=== PATIENT | female | born 1980 | race Caucasian/White ===

== ENCOUNTER 2020-12-06 15:16 | Emergency (ER) | payer OTHER, SELFPAY ==
--- NOTE | ~2020-12-06 | XR_ITS ---
XR shoulder LT min 2V DATE: 12/06/2020 18:16 INDICATION: Left posterior shoulder pain since Wednesday. TECHNIQUE: 4 views COMPARISON: None FINDINGS: No fracture or dislocation, periosteal reaction or bone destruction. No abnormal soft tiss ue calcification. There is degenerative spurring at the the bilateral C5-6 and left C6-7 uncovertebral joints. Degenerative disc disease at C5-6. IMPRESSION: Negative left shoulder Degenerative changes of the cervical spine Reviewed, dictated and finalized at location A. [employer]
[2020-12-06 15:58] VITALS: BP 119/64; PULSE 75; RESP 18; TEMP 36.8; O2SAT 100
[2020-12-06 17:37] VITALS: BP 113/70; PULSE 69; RESP 18; TEMP 36.8; O2SAT 98
--- NOTE | 2020-12-06 18:09 | ED.EXTPRO ---
HPI - Extremity Problem General Chief complaint: Back Pain/Injury Stated complaint: lt neck and shoulder pain Time Seen by Provider: 12/06/20 18:04 Source: patient Mode of arrival: ambulatory Limitations: no limitations History of Present Illness HPI Narrative: This is a 40 year old female that presents to the ER for left posterior shoulder pain x 1 week. Reports she was carrying cases of water up the stairs and when she got to the top she felt sharp pain in the back of her left shoulder. Reports the pain has continued since. Reports last night she picked up her daughter with worsening of pain. She has been taking Ibuprofen with little relief. Denies decreased ROM or numbness. Related Data Allergies Allergy/AdvReac Type Severity Reaction Status Date / Time No Known Allergies Allergy Verified 12/06/20 16:03 Review of Systems Review of Systems: Narrative: CONSTITUTIONAL: Denies fever SKIN: Denies rash MUSCULOSKELETAL: Reports back pain, joint pain, and myalgia. NEUROLOGIC: Denies numbness, or weakness. All systems reviewed & are unremarkable except as noted in HPI and below PMFSH Past Medical History Medical History (Updated 12/06/20 @ 20:01 by Maria E Mg PA-C) No active medical problems Social History Social History (Updated 12/06/20 @ 18:12 by Maria E Mg PA-C) Smoking status: Current every day smoker Exam Narrative: Exam Narrative: GENERAL: Well-appearing, well-nourished, and in no acute distress. HEAD: Normocephalic, atraumatic. EYES: EOMI. CHEST: Clear to auscultation. No respiratory distress. No wheezes rales or rhonchi HEART: Regular rate and rhythm. No murmur heard. Normal peripheral pulses. BACK: Left trapezius musculature tender to palpation EXTREMITIES: Normal range of motion. No edema or obvious deformity. Strength equal in bilateral upper extremities. Normal radial pulses. Normal sensation SKIN: Warm, dry, no rash. NEURO: No focal deficits. Alert and oriented x3. PSYCH: Normal mood and affect Course Vital Signs Vital signs: Vital Signs Temperature 98.2 F 12/06/20 15:58 Pulse Rate 75 12/06/20 15:58 Respiratory Rate 18 12/06/20 15:58 Blood Pressure 119/64 12/06/20 15:58 Pulse Oximetry 100 12/06/20 15:58 Temperature 98.2 F 12/06/20 17:37 Pulse Rate 69 12/06/20 17:37 Respiratory Rate 18 12/06/20 17:37 Blood Pressure 113/70 12/06/20 17:37 Pulse Oximetry 98 12/06/20 17:37 MDM - Extremity (Nontraumatic) MDM Narrative Medical decision making narrative: Patient presents the emergency department for left posterior shoulder pain x1 week after lifting heavy object. Patient is neurologically intact. Left shoulder x-rays without acute findings. Patient given Toradol, Tylenol and muscle relaxer with relief. She is stable and felt appropriate for further outpatient evaluation. She was given warnings to return to the ER Imaging Data Radiologist's impression: ITS Impressions Shoulder X-Ray 12/06/20 18:22 IMPRESSION: Negative left shoulder Degenerative changes of the cervical spine Critical Care Time Critical Care Time Critical Care Time: No Discharge Plan Discharge Clinical Impression: Acute thoracic myofascial strain Qualifiers: Encounter type: initial encounter Qualified Code(s): S29.019A - Strain of muscle and tendon of unspecified wall of thorax, initial encounter Patient Disposition: Home, Self-Care Condition: Stable Instructions: Muscle Strain (ED) Additional Instructions: Return to the ER if you experience fever, weakness, numbness, or any other symptoms that are concerning to you Rest, use ice/heat, take anti-inflammatories (Aleve, Ibuprofen, Naproxen, etc) or Tylenol as needed for pain as well as muscle relaxer (diazepam) as needed for pain. Muscle relaxers can make you drowsy, do not drive if you take this Follow up with primary care doctor Prescriptions: New diazepam 5 mg tablet 5 mg PO BID
[2020-12-06] MEDS: ACETAMINOPHEN 500 MG TABLET 1000 MG PO (18:35)
[2020-12-06] MEDS: KETOROLAC (*BKC) 60 MG/2 ML VIAL IM (18:36)
[2020-12-06] MEDS: diazePAM INJ (*CRX) 10 MG/2 ML SYRINGE 5 MG IM (18:37)
[2020-12-06 19:05] VITALS: TEMP 36.8
[2020-12-06 19:06] VITALS: TEMP 36.8
[2020-12-06 20:08] VITALS: BP 129/68; PULSE 76; RESP 16; O2SAT 96
== END 2020-12-06 20:10 | disposition home or self-care (01) ==
PROVIDERS: Emergency Provider Emergency Medicine
DX: S29.019A Strain of muscle and tendon of unspecified wall of thorax, initial encounter (principal); F17.200 Nicotine dependence, unspecified, uncomplicated; X50.0XXA Overexertion from strenuous movement or load, initial encounter
CPT/HCPCS: 73030; 96372; 99284; A9270; J1885; J3360

== ENCOUNTER 2020-12-30 09:25 | Outpatient (CLI) | payer OTHER, SELFPAY ==
--- NOTE | ~2020-12-30 | MR_ITS ---
EXAMINATION: MR cervical spine wo con DATE: 12/30/2020 10:23 INDICATION: Cervical radiculopathy. TECHNIQUE: Magnetic resonance imaging (MRI) of the cervical spine was performed without intravenous c ontrast. Sequences included sagittal T2-weighted FSE, sagittal STIR FSE, sagittal T1-weighted FSE, ax ial MERGE, and axial T2-weighted FSE. COMPARISON: None FINDINGS: There is kyphosis of cervical spine. Vertebral body heights are normal. There is mildly dec reased disc height at C3-C4, moderately decreased disc height at C4-C5 and C5-C6, and mildly decrease d disc height at C6-C7. The spinal cord signal intensity is normal. The following disc levels are spe cifically discussed: C2-C3: The disc does not extend beyond the endplate margin. There is no uncovertebral joint osteoarth ritis. There is mild bilateral facet joint osteoarthritis. There is no neural foraminal stenosis. The re is no central canal stenosis. C3-C4: The disc is bulging. There is moderate bilateral uncovertebral joint osteoarthritis. There is mild right facet joint osteoarthritis. There is moderate bilateral neural foraminal stenosis. There i s mild central canal stenosis with ventral indentation of spinal cord. C4-C5: The disc is bulging superimposed left subarticular zone extrusion. There is moderate bilateral uncovertebral joint osteoarthritis. There is no facet joint osteoarthritis. There is mild right and moderate left neural foraminal stenosis. There is moderate central canal stenosis with ventral and do rsal indentation of spinal cord. C5-C6: The disc is bulging with superimposed left subarticular extrusion. There is severe bilateral u ncovertebral joint osteoarthritis. There is mild bilateral facet joint osteoarthritis. There is sever e bilateral neural foraminal stenosis. There is moderate central canal stenosis with ventral and dors al indentation of spinal cord. C6-C7: The disc is bulging with superimposed left central extrusion. There is mild right and moderate left uncovertebral joint osteoarthritis. There is no facet joint osteoarthritis. There is mild right and moderate left neural foraminal stenosis. There is mild central canal stenosis. C7-T1: The disc does not extend beyond the endplate margin. There is no uncovertebral joint osteoarth ritis. There is mild bilateral facet joint osteoarthritis. There is no neural foraminal stenosis. The re is no central canal stenosis. IMPRESSION: 1. Severe cervical spondylosis. Reviewed, dictated and finalized at location A. [employer]
== END 2020-12-30 09:26 | disposition home or self-care (01) ==
LOC: ANHIMG 09:30
PROVIDERS: PCP Family Medicine; Visit Provider Family Medicine
DX: M54.12 Radiculopathy, cervical region (principal); M47.812 Spondylosis without myelopathy or radiculopathy, cervical region
CPT/HCPCS: 72141

== ENCOUNTER 2022-02-12 11:04 | Emergency (ER) | payer OTHER, SELFPAY ==
[2022-02-12 11:29] VITALS: BP 104/65; PULSE 86; RESP 18; TEMP 36.7; O2SAT 99
--- NOTE | 2022-02-12 11:58 | ED.URI ---
HPI - URI/Sore Throat General Chief Complaint: Upper Respiratory Infection Stated Complaint: sorethroat Time Seen by Provider: 02/12/22 11:58 Source: patient Mode of arrival: ambulatory Limitations: no limitations History of Present Illness HPI Narrative: 41-year-old female presents with complaint of sore throat, fatigue, headaches, body aches, chills, fever for 2 days. Today have vomiting and diarrhea. Continues to feel nauseated. Reports coworkers with similar symptoms. No known Covid contact. Denies chest pain or shortness of breath. Taking Tylenol for fever. Systems reviewed and negative except as noted above. Related Data Allergies Allergy/AdvReac Type Severity Reaction Status Date / Time No Known Allergies Allergy Verified 02/12/22 12:00 Review of Systems Review of Systems: CONSTITUTIONAL: Reports fever, chills, or sweats. EYES: Denies visual changes, redness, or discharge. ENT: Denies rhinorrhea, congestion. Reports sore throat. Denies otalgia. CARDIOVASCULAR: Denies chest pain, palpitations, or edema. RESPIRATORY: Denies cough or dyspnea. GASTROINTESTINAL: Denies abdominal pain. Reports nausea, vomiting, or diarrhea. GENITOURINARY: Denies dysuria or hematuria. SKIN: Denies rash or itching. MUSCULOSKELETAL: Denies back pain, joint pain, or myalgia. NEUROLOGIC: Denies headache, numbness, or weakness. PSYCHIATRIC: Denies anxiety or depression. All other systems reviewed are negative, except as documented in HPI. [facility] Past Medical History Medical History (Updated 02/12/22 @ 12:27 by Kathy Graves NP) BMI 28.0-28.9,adult BMI 30.0-30.9,adult Cervical spondylosis with radiculopathy MRI 12/30/2020 with severe spondylosis Chronic anxiety No active medical problems Radiculitis of left cervical region Family History Family History (Updated 12/12/20 @ 14:07 by Coral Almazan MA) Grandparent Brain cancer Grandparent Carcinoma of colon Social History Social History (Updated 03/10/21 @ 15:15 by Coral Almazan MA) Smoking packs per day: 0.5 Smoking cigarettes per day: 10.0 Years smoked: 24 Smoking pack-years: 12.00 Smoking status: Current every day smoker Tobacco type: cigarettes Alcohol intake: never Substance use: never Substance use type: does not use Comments At time of signature, agree with nursing past medical, surgical, social and family history. There is no relevant family history pertinent to the presenting complaint. Exam Narrative: GENERAL: This is a well-nourished, well-developed patient, in no apparent distress. HEAD: normocephalic, atraumatic. EYES: PERRL. Sclera clear/white. Vision is grossly intact. EARS: External ears normal, auditory canals clear and without drainage, TMs normal without perforation. Hearing grossly intact. NOSE: External nose normal with no obvious nasal discharge, nares without redness, no rhinorrhea. THROAT: Mucous membranes moist, mild erythema to posterior phonics with no swelling or exudates. No tonsillar swelling. NECK: Neck supple, non-tender without lymphadenopathy, masses or thyromegaly. CARDIOVASCULAR: Regular rate and rhythm without murmurs, gallops, or rubs. RESPIRATORY: Clear to auscultation. Breath sounds equal bilaterally. No wheezes, rales, or rhonchi. GASTROINTESTINAL: Abdomen soft, non-tender, nondistended. Bowel sounds are active. No hepato-splenomegaly, or palpable masses. No guarding. SKIN: warm, Dry, intact with no suspicious lesions or rash, good texture and turgor. NEURO: awake, alert, and oriented to person, place and time. There were no obvious focal neurologic abnormalities. EXTREMITIES: Normal range of motion to all extremities.. Course Course Level of Care: Express Care Visit Vital Signs Vital signs: Vital Signs Temperature 36.7 C 02/12/22 11:29 Pulse Rate 86 02/12/22 11:29 Respiratory Rate 18 02/12/22 11:29 Blood Pressure 104/65 02/12/22 11:29 Pulse Oximetry 99 02/12/22 11:29
== END 2022-02-12 12:30 | disposition home or self-care (01) ==
PROVIDERS: Emergency Provider Nurse Practitioner Family
DX: B34.9 Viral infection, unspecified (principal); F17.210 Nicotine dependence, cigarettes, uncomplicated; M47.22 Other spondylosis with radiculopathy, cervical region
CPT/HCPCS: 87804; 99213; G0463

== ENCOUNTER 2024-02-02 12:47 | Emergency (ER) | payer OTHER, SELFPAY ==
[2024-02-02 13:02] VITALS: BP 114/63; PULSE 83; RESP 18; TEMP 36.7; O2SAT 98
--- NOTE | 2024-02-02 13:12 | ED.URI ---
HPI - URI/Sore Throat General Chief Complaint: Upper Respiratory Infection Stated Complaint: Sore Throat,Cough,Fever Time Seen by Provider: 02/02/24 13:04 Source: patient and RN notes reviewed Mode of arrival: ambulatory Limitations: no limitations History of Present Illness HPI Narrative: Patient presents today complaining of a subjective fever, sore throat, cough, rhinorrhea, chills, postnasal drip, headache since 4:00 a.m. this morning. Denies shortness of breath or difficulty swallowing. Currently rates her pain 6/10 and has been taking Tylenol with some relief. Reports daughter was sick with similar symptoms last week, Related Data Home Medications Medication Instructions Recorded Confirmed No Home Medications 02/02/24 02/02/24 Allergies Allergy/AdvReac Type Severity Reaction Status Date / Time No Known Allergies Allergy Verified 02/02/24 12:50 Review of Systems Review of Systems: CONSTITUTIONAL: Denies body aches, or sweats.+ subjective fever, chills EYES: Denies visual changes, redness, or discharge. ENT: Denies otalgia.+ rhinorrhea, postnasal drip, sore throat CARDIOVASCULAR: Denies chest pain, palpitations, or edema. RESPIRATORY: Denies dyspnea.+ cough GASTROINTESTINAL: Denies abdominal pain, nausea, vomiting, or diarrhea. GENITOURINARY: Denies dysuria or hematuria. SKIN: Denies rash, itching, or wounds. MUSCULOSKELETAL: Denies back pain, joint pain, or myalgia. NEUROLOGIC: Denies numbness, tingling, or weakness.+ headache PSYCH: Denies depression or anxiety. [facility] Past Medical History Medical History BMI 28.0-28.9,adult BMI 30.0-30.9,adult Cervical spondylosis with radiculopathy MRI 12/30/2020 with severe spondylosis Chronic anxiety No active medical problems Radiculitis of left cervical region Family History Family History Grandparent Brain cancer Grandparent Carcinoma of colon Social History Social History Smoking packs per day: 0.5 Smoking cigarettes per day: 10.0 Years smoked: 24 Smoking pack-years: 12.00 Smoking status: Current every day smoker Tobacco type: cigarettes Alcohol intake: never Substance use: never Substance use type: does not use Comments At time of signature, I have reviewed and agree with nursing past medical, surgical, social and family history unless otherwise noted. Please see nursing chart for further information. There is no relevant family history pertinent to the presenting complaint Exam Narrative: GENERAL: Well-appearing, well-nourished, and in no acute distress. HEAD: Normocephalic, atraumatic. EYES: EOMI. No redness or drainage. Conjunctivae normal. ENT: Mucous membranes pink and moist. Nares clear. No rhinorrhea. TMs normal bilaterally. Throat mildly erythematous without edema or exudate. Uvula midline. NECK: Normal AROM. Supple. Bilateral anterior cervical chain lymphadenopathy CHEST: No respiratory distress. Clear to auscultation. HEART: Regular rate and rhythm. No murmur appreciated. EXTREMITIES: Normal range of motion. No edema. SKIN: Warm, dry, no rash. Capillary refill normal. Normal skin turgor. NEURO: No focal deficits. Alert and oriented x3. Gait steady. PSYCH: Normal affect. No signs of depression or anxiety. Course Course Level of Care: Express Care Visit Vital Signs Vital signs: Vital Signs Temperature 98.0 F 02/02/24 13:02 Pulse Rate 83 02/02/24 13:02 Respiratory Rate 18 02/02/24 13:02 Blood Pressure 114/63 02/02/24 13:02 Pulse Oximetry 98 02/02/24 13:02 Oxygen Delivery Room Air 02/02/24 13:02 Temperature 98.0 F 02/02/24 13:02 Pulse Rate 83 02/02/24 13:02 Respiratory Rate 18 02/02/24 13:02 Blood Pressure 114/63 02/02/24 13:02 Pulse Oximetry 98 02/02/24 13:02 Oxygen
== END 2024-02-02 13:25 | disposition home or self-care (01) ==
PROVIDERS: Emergency Provider Nurse Practitioner
DX: J06.9 Acute upper respiratory infection, unspecified (principal); Z20.822 Contact with and (suspected) exposure to COVID-19; F17.210 Nicotine dependence, cigarettes, uncomplicated; M47.22 Other spondylosis with radiculopathy, cervical region
CPT/HCPCS: 87081; 87426; 87804; 87880; 99213; G0463